=== PATIENT | male | born 1960 | race Caucasian/White ===

== ENCOUNTER 2024-12-11 18:14 | Emergency (ER) | payer BC, OTHER ==
[2024-12-11] MEDS ORDERED: CYCLOBENZAPRINE 10 MG TAB ONE (19:03)
[2024-12-11] MEDS ORDERED: dexAMETHasone 10 MG/ML VIAL ONE (19:03)
[2024-12-11] MEDS ORDERED: HYDROCODONE/APAP 7.5/325 MG TAB ONE (19:04)
--- NOTE | 2024-12-11 20:07 | RAD REPORT ---
EXAMINATION: CT LUMBAR SPINE WITHOUT CONTRAST CLINICAL INDICATION: Male, 64 years old. PAIN TECHNIQUE: Axial CT images were obtained through the lumbar spine in soft tissue and bone windows wit hout intravenous contrast. Coronal and Sagittal reformatted images were created from the data set. One or more of the following dose reduction techniques were used: Automated exposure control, adjustm ent of the mA and/ or kV according to patient size, and/or iterative reconstruction. Unless otherwise specified, incidental findings do not require dedicated imaging follow-up. [id number]. COMPARISON: No prior exam. FINDINGS: For purposes of this dictation, it is assumed that there are 5 non rib-bearing lumbar type vertebrae, and the most caudal fully segmented lumbar vertebra is labeled L5. ALIGNMENT: Grade 1 anterolisthesis of L3 on L4. Trace retrolisthesis of L4 and L5. BONES: No significant soft tissue abnormalities. No aggressive osseous lesions. LEVELS: T12-L1: No significant focal changes. L1-L2: Degenerative changes but without significant neural foraminal narrowing or central spinal sten osis. L2-L3: Degenerative changes but without significant neural foraminal narrowing or central spinal sten osis. L3-L4: Broad-based disc bulge with facet and ligament flavum hypertrophy results in at least moderate central spinal stenosis, severe left, and mild right neural foraminal narrowing. Bilateral subarticular zone stenosis. L4-L5: Disc height loss with broad-based disc bulge and facet and ligamentum flavum hypertrophy resul ts in moderate right and mild left neural foraminal narrowing. No central spinal stenosis. L5-S1: Minimal broad-based disc bulge as well as disc height loss results in mild left neural foramin al narrowing. Right neural foramen is adequate. No central spinal stenosis. SOFT TISSUE: Normal appendix. Atherosclerosis. IMPRESSION: No acute lumbar spine abnormalities. Multilevel degenerative changes most pronounced at L3-4 where there is evidence of neural foraminal n arrowing, moderate central spinal stenosis, and bilateral subarticular zone stenosis. This could explain an L4 or L5 radiculopathy on either side.
--- NOTE | 2024-12-11 23:24 | ER ---
Nurse's Notes [facility] Name: Chele Rojas Age: 64 yrs Sex: Male : 1960 Arrival Date: 12/11/2024 Time: 18:14 Bed 10 Private MD: Diagnosis: Radiculopathy, lumbar region;Intervertebral disc disorders with radiculopathy, lumbar region Presentation: 12/11 18:54 Chief complaint: Patient states: Left lower back pain that radiates down left leg onset cm10 last night. Pt denies any trauma or injury. Coronavirus screen: Client denies travel out of the [place] in the last 14 days. Ebola Screen: Patient denies travel to an Ebola-affected area in the 21 days before illness onset. Initial Sepsis Screen: Does the patient meet any 2 criteria? No. Patient's initial sepsis screen is negative. Does the patient have a suspected source of infection? No. Patient's initial sepsis screen is negative. Risk Assessment: Do you want to hurt yourself or someone else? Patient reports no desire to harm self or others. Onset of symptoms was December 11, 2024. 18:54 Method Of Arrival: Ambulatory cm10 18:54 Acuity: DOMITILA 4 cm10 Triage Assessment: 18:55 General: Appears in no apparent distress. uncomfortable, Behavior is calm, cooperative. cm10 Pain: Complains of pain in left low back Pain radiates to left leg Pain currently is 9 out of 10 on a pain scale. Quality of pain is described as sharp, shooting. Neuro: No deficits noted. Level of Consciousness is awake, alert, obeys commands, Oriented to person, place, time, situation, Appropriate for age. Respiratory: No deficits noted. Airway is patent Respiratory effort is even, unlabored, Respiratory pattern is regular, symmetrical. Musculoskeletal: Range of motion: intact in all extremities, Reports pain in left leg. Historical: - Allergies: 18:55 No Known Allergies; cm10 - Home Meds: 18:55 None [Active]; cm10 - PMHx: 18:55 None; cm10 - PSHx: 18:55 Hernia Repair; cm10 - Immunization history:: Adult Immunizations up to date. - Infectious Disease History:: Denies. - Social history:: Smoking status: Patient denies any tobacco usage or history of. - Family history:: not pertinent. Screenin:41 [facility] ED Fall Risk Assessment (Adult) History of falling in the last 3 months, jb4 including since admission No falls in past 3 months (0 pts) Confusion or Disorientation No (0 pts) Intoxicated or Sedated No (0 pts) Impaired Gait No (0 pts) Mobility Assist Device Used No (0 pt) Altered Elimination No (0 pt) Score/Fall Risk Level 0 - 2 = Low Risk Oriented to surroundings, Maintained a safe environment. Abuse screen: Denies threats or abuse. Nutritional screening: No deficits noted. Tuberculosis screening: No symptoms or risk factors identified. Assessment: 22:00 Reassessment: Patient appears in no apparent distress at this time. Patient and/or jb4 family updated on plan of care and expected duration. Pain level reassessed. Patient is alert, oriented x 3, equal unlabored respirations, skin warm/dry/pink. Pt reports pain has not improved, provider notified. 23:41 Reassessment: Patient appears in no apparent distress at this time. Patient and/or jb4 family updated on plan of care and expected duration. Pain level reassessed. Patient is alert, oriented x 3, equal unlabored respirations, skin warm/dry/pink. Vital Signs: 18:54 BP 171 / 84; Pulse 64; Resp 18; Temp 97.3(TE); Pulse Ox 100% on R/A; Weight 90.72 kg; cm10 Height 6 ft. 0 in. ; Pain 9/10; 18:54 Body Mass Index 27.12 (90.72 kg, 182.88 cm) cm10 18:54 Pain Scale: Adult cm10 ED Course: 18:18 Patient arrived in ED. mr 18:52 Adan Cedillo MD is Attending Physician. rt 18:55 Triage completed. cm10 18:55 Arm band placed on left wrist. Patient placed in waiting room. cm10 19:44 CT Lumbar Spine Wo Con In Process Unspecified. EDMS 20:40 Attending Physician role handed off by Adan Cedillo MD sp4 20:40 Jose Francisco Dumont MD is Attending Physician. sp4 23:41 No provider procedures requiring assistance completed. Patient did not have IV access jb4 during this emergency room visit. Administered Medications: 19:06 Drug: Hydrocodone-Acetaminophen PO (7.5 mg-325 mg) 1 tabs PO once Route: PO; cm10 22:00 Follow up: Response: No adverse reaction; No change in condition; Pain is unchanged, jb4 physician notified 19:06 Drug: Cyclobenzaprine PO 10 mg PO once Route: PO; cm10 22:00 Follow up: Response: No adverse reaction; No change in condition; Pain is unchanged, jb4 physician notified 19:07 Drug: Dexamethasone IM 10 mg IM once Route: IM; Site: left gluteus; cm10 22:00 Follow up: Response: No adverse reaction; Marked relief of symptoms; Pain is decreased jb4 23:40 Drug: HYDROcodone-acetaminophen PO 5 mg-325 mg 2 tabs PO once Route: PO; jb4 23:40 Follow up: Response: Medication administered at discharge. jb4 23:40 Drug: Methocarbamol PO 1500 mg PO once Route: PO; jb4 23:41 Follow up: Response: Medication administered at discharge. jb4 23:40 Drug: Ketorolac IM 60 mg IM once Route: IM; Site: left gluteus; jb4 23:41 Follow up: Response: Medication administered at discharge. jb4 Outcome: 23:23 Discharge ordered by . sp4 23:42 Discharged to home via wheelchair, with family, jb4 23:42 Condition: stable 23:42 Discharge instructions given to patient, Instructed on discharge instructions, follow up and referral plans. no drinking with medication, no driving heavy equipment, medication usage, Demonstrated understanding of instructions, follow-up care, medications, Prescriptions given X 3, 23:42 Patient left the ED. jb4 Signatures: Dispatcher [employer] EDMD ConnorsJoyce, Reg Reg Jose Lowry, RN RN jb4 Adan Cedillo MD MD rt Jose Francisco Dumont MD MD sp4 Kay Lott, RN RN cm10
--- NOTE | 2024-12-11 23:24 | EDPHYS ---
Physician Documentation [facility] Name: Chele Rojas Age: 64 yrs Sex: Male : 1960 Arrival Date: 12/11/2024 Time: 18:14 Bed 10 Private MD: ED Physician Jose Francisco Dumont HPI: 12/11 20:44 This 64 yrs old Male presents to ER via Ambulatory with complaints of Back Pain. rt 20:44 Patient presents to the ED with a left lower back pain radiating to the back of the leg rt starting last night. Symptoms are worse with movement. Patient had a recent kayaking trip, states that this may have exacerbated the injury he had previously. Denies other acute complaints at this time, symptoms are moderate severity, aching nature, no other aggravating elevating factors.. Historical: - Allergies: 18:55 No Known Allergies; cm10 - Home Meds: 18:55 None [Active]; cm10 - PMHx: 18:55 None; cm10 - PSHx: 18:55 Hernia Repair; cm10 - Immunization history:: Adult Immunizations up to date. - Infectious Disease History:: Denies. - Social history:: Smoking status: Patient denies any tobacco usage or history of. - Family history:: not pertinent. ROS: 20:44 Constitutional: Negative for fever, chills, and weight loss, Cardiovascular: Negative rt for chest pain, palpitations, and edema, Respiratory: Negative for shortness of breath, cough, wheezing, and pleuritic chest pain, Abdomen/GI: Negative for abdominal pain, nausea, vomiting, diarrhea, and constipation, Skin: Negative for injury, rash, and discoloration, Neuro: Negative for headache, weakness, numbness, tingling, and seizure, 20:44 Back: Positive for pain at rest, pain with movement, Exam: 20:44 Constitutional: This is a well developed, well nourished patient who is awake, alert, rt and in no acute distress. Head/Face: Normocephalic, atraumatic. Chest/axilla: Normal chest wall appearance and motion. Nontender with no deformity. No lesions are appreciated. Cardiovascular: Regular rate and rhythm with a normal S1 and S2. No gallops, murmurs, or rubs. Normal PMI, no JVD. No pulse deficits. Respiratory: Lungs have equal breath sounds bilaterally, clear to auscultation and percussion. No rales, rhonchi or wheezes noted. No increased work of breathing, no retractions or nasal flaring. Abdomen/GI: Soft, non-tender, with normal bowel sounds. No distension or tympany. No guarding or rebound. No evidence of tenderness throughout. Skin: Warm, dry with normal turgor. Normal color with no rashes, no lesions, and no evidence of cellulitis. MS/ Extremity: Pulses equal, no cyanosis. Neurovascular intact. Full, normal range of motion. 20:44 Back: No midline tenderness, tenderness to the left lower lumbar region, no other focal areas of tenderness, Vital Signs: 18:54 BP 171 / 84; Pulse 64; Resp 18; Temp 97.3(TE); Pulse Ox 100% on R/A; Weight 90.72 kg; cm10 Height 6 ft. 0 in. ; Pain 9/10; 18:54 Body Mass Index 27.12 (90.72 kg, 182.88 cm) cm10 18:54 Pain Scale: Adult cm10 MDM: 19:01 Medical Screening Exam initiated rt 0306 22:28 Differential diagnosis: chronic back pain, Fatigue Fracture Joint Injury Osteoporosis. sp4 Data reviewed: vital signs, nurses notes, radiologic studies, CT scan. ED course: . Patient stable for discharge home. Patient was given prescription for hydrocodone 10. 12/11 19:02 Order name: CT Lumbar Spine Wo Con; Complete Time: 20:40 rt Administered Medications: 12/11 19:06 Drug: Hydrocodone-Acetaminophen PO (7.5 mg-325 mg) 1 tabs PO once Route: PO; cm10 22:00 Follow up: Response: No adverse reaction; No change in condition; Pain is unchanged, 4 physician notified 19:06 Drug: Cyclobenzaprine PO 10 mg PO once Route: PO; cm10 22:00 Follow up: Response: No adverse reaction; No change in condition; Pain is unchanged, 4 physician notified 19:07 Drug: Dexamethasone IM 10 mg IM once Route: IM; Site: left gluteus; cm10 22:00 Follow up: Response: No adverse reaction; Marked relief of symptoms; Pain is decreased [facility] 23:40 Drug: HYDROcodone-acetaminophen PO 5 mg-325 mg 2 tabs PO once Route: PO; jb4 23:40 Follow up: Response: Medication administered at discharge. jb4 23:40 Drug: Methocarbamol PO 1500 mg PO once Route: PO; jb4 23:41 Follow up: Response: Medication administered at discharge. jb4 23:40 Drug: Ketorolac IM 60 mg IM once Route: IM; Site: left gluteus; jb4 23:41 Follow up: Response: Medication administered at discharge. jb4 Disposition: 12/12 22:28 Chart complete. sp4 Disposition Summary: 12/11/24 23:23 Discharge Ordered Notes: Location: Home sp4 Problem: new sp4 Symptoms: have improved sp4 Condition: Stable sp4 Diagnosis - Radiculopathy, lumbar region sp4 - Intervertebral disc disorders with radiculopathy, lumbar region sp4 Followup: sp4 - With: Private Physician - When: 7 - 10 days - Reason: Recheck today's complaints Discharge Instructions: - Discharge Summary Sheet sp4 - Radicular Pain sp4 Forms: - Patient Portal Instructions sp4 Prescriptions: - naproxen 500 mg Oral tablet - take 1 tablet ORAL route every 12 hours PRN pain; 50 tablet; Refills: 0, sp4 Product Selection Permitted - methocarbamol 750 mg Oral tablet - take 2 tablets ORAL route every 8 hours for 3 days PRN pain; 60 tablet; sp4 Refills: 0, Product Selection Permitted Signatures: Dispatcher [employer] Jose Patton, RN RN jb4 Adan Cedillo MD MD rt Jose Francisco Dumont MD MD sp4 Kay Lott RN RN cm10
[2024-12-11] MEDS ORDERED: methocarbamoL 750 MG TAB ONE (23:30)
[2024-12-11] MEDS ORDERED: HYDROCODONE/APAP 5/325 MG TAB ONE (23:31)
[2024-12-11] MEDS ORDERED: KETOROLAC 30 MG/ML INJ ONE (23:31)
[2024-12-12 00:27] VITALS: BP 171/84; TEMP 97.3; O2SAT 100
== END 2024-12-11 23:42 | disposition home or self-care (01) ==
LOC: ER 18:14
DX: M54.16 Radiculopathy, lumbar region (principal)
CPT/HCPCS: 72131; J1100